=== PATIENT | female | born 1990 | race Caucasian/White ===

== ENCOUNTER → 2017-07-11 | Outpatient (CLI) | payer OTHER ==
--- NOTE | ~2017-07-11 | MY29 ---
[facility] A Service of [facility] RADIOLOGY TEXT RESULTS PATIENT: RAF BURT LOCATION: [facility] : [birth year] UNIT #: [id number] AGE: [address]: Tee Torres MD SEX: F ORDER DR: [id number] [facility] [address] [place], [place] [address] [id number] O MR#: [id number] Acc #: [id number] NAME: RAF BURT : 1990 SEX: F STUDY DATE/TIME: 07/11/2017 9:33 UNIT: [facility] ROOM: STUDY DESCRIPTION: MY [facility] SCREENING W/ CAD BILAT Attending Physician: Tee Torres M.D. Ordering Physician: Tee Torres M.D. Primary Care Physician: Tee Torres M.D. MEDICAL IMAGING REPORT This report is preliminary unless electronic signature is present EXAM Digital screening mammogram 07/11/2017 HISTORY 27-year-old woman for baseline mammogram. Positive family history, mother age 46. History indicates left breast larger than right. COMPARISON None. FINDINGS Digital imaging of each breast was completed utilizing screening protocol. Review includes FDA-approved CAD device. Breast parenchyma is homogeneously dense with generalized glandular parenchymal pattern noted in each breast. Left breast projects slightly larger. There is mild parenchymal dominance in the upper hemisphere of the left breast. I see no suspicious mass characteristics. There are no microcalcifications and no visible architectural disturbance. IMPRESSION Negative baseline mammogram. Extremely dense breast parenchyma noted. Recommend next mammogram at age 33 with self examination and clinical breast evaluation on a regular basis prior to age 35. Patients over the age of 40 are entered into a reminder system with target due date for the next mammogram. A result letter will also be sent to the patient. BIRADS: 1 Negative Dictated by... Tristan Shore M.D. [facility] A Service [facility] RADIOLOGY TEXT RESULTS PATIENT: RAF BURT LOCATION: [facility] : 86 UNIT #: [id number] AGE: [address]: Tee Torres MD SEX: F ORDER DR: THIS IS AN ELECTRONICALLY VERIFIED REPORT Tristan Shore M.D. at 07/11/2017 3:33 PM LALITO/rg TD: 07/11/2017 14:09 JOB #: [id number] MEDICAL IMAGING REPORT Page 1 of 1 COPY
== END | disposition home or self-care (01) ==
LOC: CWCC 09:15
DX: Z12.31 Encounter for screening mammogram for malignant neoplasm of breast (principal); Z80.3 Family history of malignant neoplasm of breast
CPT/HCPCS: G0202